=== PATIENT | male | born 1930 | race Caucasian/White ===

== ENCOUNTER 2018-09-03 10:16 | Inpatient (IN) ==
[2018-09-03 12:21] LABS: ALLEN TEST NO; BE 0.4 mmoll (-3.0-3.0); BLOOD TYPE ARTERIAL; HCO3-(ACT) 25.2 mmoll (20.0-26.0); METHB 0.9 % (0.0-1.5); MODALITY ROOM AIR; O2(CT) 14.8 mL/dL (15.0-23.0); O2HB 93.8 % (95.0-99.0); PCO2(98.6) 45 mmHg (35-45); PO2(98.6) 73 mmHg (60-100); SAMPLE BLOOD; SAO2 96.2 % (95.0-100.0); THB 11.2 g/dL (11.5-17.4); pH(98.6) 7.37 (7.35-7.45)
[2018-09-03] MEDS: NS 1,000 ML IV ONE ×2 (12:25→16:58)
[2018-09-03 12:50] LABS: BASO# 0.26 X1000 (0.0-0.2); BASO% 2.2 % (0.0-0.8); EOS# 0.12 X1000 (0.0-0.7); HEMATOCRIT 35.7 % (42.0-52.0); HEMOGLOBIN 10.7 g/dL (14.0-18.0); IMM GRAN# 0.89 X1000 (0.0-0.04); IMM GRAN% 7.5 % (0.0-0.5); LYMPH# 1.23 X1000 (1.2-3.4); LYMPH% 10.4 % (20.5-51.1); MCH 27.9 PG (27-31); MCV 93.2 FL (81-99); MONO# 1.68 X1000 (0.11-0.59); MONO% 14.2 % (1.7-9.3); MPV 9.8 FL (7.4-10.4); NEUT# 7.66 X1000 (1.4-6.5); NEUT% 64.7 % (42.2-75.2); RBC 3.83 XMIL (4.7-6.1); RDW 18.9 % (11.5-14.5); WBC 11.84 X1000 (4.8-10.8)
--- NOTE | 2018-09-03 12:51 | Diag Imaging Result Doc PS360 ---
EXAM: CHEST-1 VIEW 09/03/2018 HISTORY: AMS TECHNIQUE: AP portable upright at 1239 COMMENT: The heart size is slightly enlarged. There are ill-defined opacities in both lung bases. This was also present on 08/07/2018 as well as the previous study of 01/10/2018. There is a PICC line on the left with its tip in the superior vena cava. 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 Electronically signed by Jose Daniel Zarate 09/03/2018 12:49 PM
--- NOTE | 2018-09-03 12:57 | PROVIDER DOCUMENTATION ---
HPI-General Adult - General Chief Complaint: Altered Mental Status Stated Complaint: CONFUSION Time Seen by Provider: 09/03/18 11:48 Source: family Unable to obtain history due to:: other (pt disoriented) Allergies/Adverse Reactions: Patient Allergies Allergy/AdvReac Type Severity Reaction Status Date / Time amoxicillin [From Augmentin] Allergy Unknown Unknown Verified 08/29/18 12:09 clavulanic acid Allergy Unknown Unknown Verified 08/29/18 12:09 [From Augmentin] gatifloxacin [From Tequin] Allergy Unknown Unknown Verified 08/29/18 12:10 Home Medications: Home Medication List Medication Instructions Recorded Confirmed Last Taken Type Albuterol Sulfate [Proair Hfa] 8.5 gm IH PRN PRN 11/30/13 02/23/15 08/28/18 History Albuterol [Albuterol Neb] 2.5 mg INH 4XDAY 11/30/13 02/23/15 08/29/18 History Tiotropium [place] Inhaler 1 puff INH RTDAILY 11/30/13 02/23/15 08/28/18 History [Spiriva] Acetylcysteine 20% [Mucomyst 20%] 3 ml INH RTBID 08/29/18 08/29/18 08/28/18 History Celecoxib [Celebrex] 200 mg PO DAILY 08/29/18 08/29/18 08/28/18 History Citalopram [Celexa] 20 mg PO DAILY 08/29/18 08/29/18 08/28/18 History Diltiazem HCl [Cartia Xt] 180 mg PO DAILY 08/29/18 08/29/18 08/28/18 History Furosemide [Lasix] 40 mg PO 08/29/18 08/28/18 History Leuprolide Acetate [Eligard] 7.5 mg SQ 08/29/18 03/31/18 History Prednisone 15 mg PO DAILY 08/29/18 08/29/18 08/28/18 History - History of Present Illness -Gen Adult Nature of Presenting Problems: gives hx, since pt is very disoriented, speech is rambling. He has been increasingly confused over sev days. Today, they were en route to see PCP, and pt became combative and violent, striking at family. No fever, no SOB. HAs had a cough, no other new medicines other than Cefipime for lung infection. Location of Pain/Injury: reports: none Timing: reports: getting worse Review of Systems - Adult - REVIEW OF SYSTEMS - ADULT Constitutional: reports: see HPI Eyes: reports: no symptoms reported Ears, Nose, Mouth & Throat: reports: no symptoms reported Cardiovascular: reports: no symptoms reported Respiratory: reports: see HPI Gastrointestinal: reports: no symptoms reported Genitourinary: reports: no symptoms reported Musculoskeletal: reports: no symptoms reported Integumentary: reports: no symptoms reported Neurological: reports: see HPI Psychiatric: reports: see HPI Endocrine: reports: no symptoms reported Hematologic/Lymphatic: reports: no symptoms reported Allergic/Immunologic: reports: no symptoms reported Past History - Adult - PAST MEDICAL HISTORY-ADULT Review of Records: reports: Medications Reviewed Cardiovascular: reports: HTN Respiratory: reports: COPD Gastrointestinal: reports: denies history Physical Exam-General - PHYSICAL EXAM-ADULT Initial Vital Signs Reviewed: Yes - CONSTITUTIONAL General Appearance: appears well, alert, no apparent distress - EYES Eyes: PERRL/EOMI, pink conjunctivae - HEAD, EARS, NOSE, MOUTH & THROAT HENMT: moist mucous membranes, normal ENT inspection, pharynx normal - NECK Neck: full range of motion, supple, normal inspection - RESPIRATORY Respiratory: lungs clear, normal breath sounds, no pleuratic chest pain, no respiratory distress, no accessory muscle use - CARDIOVASCULAR Cardiovascular: regular rate, rhythm, no edema, no murmur - GASTROINTESTINAL (ABDOMEN) Abdominal Exam: non tender, soft - MUSCULOSKELETAL Back Exam: normal inspection, no CVA tenderness, no vertebral tenderness Extremity: normal range of motion, non-tender, normal inspection, no pedal edema - SKIN Integumentary: normal color, normal turgor, warm/dry - NEUROLOGIC Neurologic: grossly normal, no motor/sensory deficits, other (CN II-XII intact, DTRs intact) - PSYCHIATRIC Psych/Mental Status: other (talking about and friend being tax collectors, rambling topics). negative: normal thought content, normal thought process Progress - PLAN OF CARE/RESULTS Progress/Plan/Lab Results: Laboratory Results - last 24 hr 09/03/18 09/03/18 09/03/18 12:15 12:20 12:20 WBC 11.84 H RBC 3.83 L Hgb 10.7 L Hct 35.7 L MCV 93.2 MCH 27.9 MCHC 30.0 L RDW Std Deviation 18.9 H Plt Count 261 MPV 9.8 Immature Gran % (Auto) 7.5 H Neut % (Auto) 64.7 Lymph % (Auto) 10.4 L [place] % (Auto) 14.2 H Eos % (Auto) 1.0 Baso % (Auto) 2.2 H Immature Gran # (Auto) 0.89 H Neut # (Auto) 7.66 H Lymph # (Auto) 1.23 [place] # (Auto) 1.68 H Eos # (Auto) 0.12 Baso # (Auto) 0.26 H Specimen Type ARTERIAL Sample Site R BRACHIAL pH 7.37 pCO2 45 pO2 73 HCO3 25.2 Base Excess 0.4 Oxyhemoglobin 93.8 L ABG O2 Sat (Calculated) 14.8 L ABG O2 Saturation 96.2 ABG Carboxyhemoglobin 1.70 ABG Methemoglobin 0.9 Guilherme Test NO A-a O2 Difference 20.0 Total Hemoglobin 11.2 L Lactate 0.60 Liter Flow 0.0 Blood Gas Modality ROOM AIR FiO2 % 21.0 Plasma Lactate 0.8 Orders Category Date Time Status CHEST-1 VIEW [RAD] Stat Exams 09/03/18 12:02 Completed ABG [RESP] Routine Lab 09/03/18 12:15 Completed CBC WITH DIFF [HEME] Stat Lab 09/03/18 12:20 Results COMPREHENSIVE METABOLIC PANEL [CHEM] Stat Lab 09/03/18 12:20 Received LACTATE, PLASMA [CHEM] Stat Lab 09/03/18 12:20 Completed URINALYSIS W/POSS RFLX CULT [URINALYSIS] Stat Lab 09/03/18 12:30 Ordered URINE DRUG SCREEN Stat Lab 09/03/18 12:30 Ordered 0.9% Sodium Chloride Inj [Ns] 1,000 ml Med 09/03/18 12:02 Active IV 125 mls/hr Result Diagrams: 09/03/18 12:20 09/03/18 12:20 - XRAY 1 XRAY Study: Chest Impression: Abnormal (bibasila fibrosis R>L) - CT/MRI 1 CT Study: Head Impression: Abnormal (microvasc changes) - CONSULTS/PCP/HOSPITALIST Notification #1 *Consult/PCP/Hospitalist*: [place] Time Discussed: 14:00 Consult Disposition: Admit Departure - Departure Date of Disposition Decision: 04/17/19 Time of Disposition Decision: 14:00 DIAGNOSIS: Altered mental status, Combative behavior Disposition: ADMITTED INPATIENT 09 Certified Medical Emergency: Emergent Condition: Good Additional Freetext Instructions: ED Follow Up Instructions: You have been treated by a care provider in the Emergency Department. These instructions are being provided to you so you can have an understanding of how to care for yourself upon discharge. Upon discharge from the Emergency Department, you are responsible for making arrangements for follow-up care by a physician of your choice. Take all prescribed medications as directed. Return to the Emergency Department immediately for any new or worsening symptoms. You may call the Physician Referral phone number at [phone] to obtain a list of Physicians who are taking new patients. Referrals and Follow-Ups: Shay Tran MD [Primary Care Provider] - - Critical Care Note This patient required my direct & personal management of CC.: No Attestation - Physician/ MARCY Attestation Patient care was provided by Advanced Practice Provider:: No The physician spent face to face time with patient:: Yes Advanced Practice Provider documentation review:: Supervising physician onsite and consulted in the evaluation and care of this patient. The physician did have a face to face encounter with the patient.
--- NOTE | 2018-09-03 12:58 | EKG Report ---
Test Performed on : 09/03/2018 10:31:43 AM Test Reason : CONFUSION Blood Pressure : / mmHG Vent. Rate : 097 BPM Atrial Rate : 097 BPM P-R Int : 124 ms QRS Dur : 108 ms QT Int : 376 ms P-R-T Axes : 059 016 023 degrees QTc Int : 477 ms Normal sinus rhythm. Incomplete right bundle branch block T wave abnormality, consider anterior ischemia Abnormal ECG When compared with ECG of 17-FEB-2015 14:24, Incomplete right bundle branch block has replaced Right bundle branch block Unconfirmed Result
[2018-09-03 13:00] LABS: ALB/GLOB RATIO 0.9; ALBUMIN 3.3 g/dL (3.5-5.0); CREATININE 1.6 mg/dL (0.7-1.2); POTASSIUM 4.1 mmol/L (3.5-5.1); TOTAL BILIRUBIN 0.23 mg/dL (0.20-1.00); TOTAL PROTEIN 6.8 g/dL (6.3-8.3)
[2018-09-03 13:26] LABS: LYMPHS 10 % (21-51); MONO 15 % (1-9); SEGS 68 % (42-75)
[2018-09-03 13:29] LABS: PLT 261 X1000 (130-400)
--- NOTE | 2018-09-03 14:03 | Diag Imaging Result Doc PS360 ---
EXAM: CT HEAD W/O CONTRAST 09/03/2018 HISTORY: AMS TECHNIQUE: This exam was performed using automated exposure control, adjustment of mA or kV according to patient size, and/or use of iterative reconstruction technique. COMMENT: There is mucosal thickening and air-fluid levels bilaterally in the maxillary sinuses and some mucosal thickening is present in the ethmoid sinuses, sphenoid sinuses bilaterally. The calvarium is intact. There is moderate generalized cerebral atrophy. There are extensive abnormal lucencies in the periventricular white matter bilaterally. There is no evidence of mass effect, bleed or abnormal extra-axial fluid collection. There are no previous studies available for comparison. IMPRESSION: Chronic microvascular ischemic changes and atrophy. Sinusitis. Electronically signed by Jose Daniel Zarate 09/03/2018 2:00 PM
[2018-09-03 14:09] LABS: URINE SOURCE CLEAN CATCH
[2018-09-03 14:15] LABS: BILIRUBIN URINE NEGATIVE (NEGATIVE); BLOOD URINE SMALL (NEGATIVE); COLOR YELLOW; GLUCOSE URINE NEGATIVE (NEGATIVE); KETONE URINE TRACE mg/dL (NEGATIVE); LEUKOCYTES URINE NEGATIVE (NEGATIVE); NITRITE URINE NEGATIVE (NEGATIVE); PH URINE 5.5; PROTEIN URINE 50 mg/dL (NEGATIVE); SP GRAVITY URINE 1.017; TURBIDITY URINE CLEAR (CLEAR); UR EPITHELIAL CELLS <10 /HPF (<10); URINE BACTERIA NEGATIVE /HPF; URINE RBC <10 /HPF (<10); URINE WBC <10 /HPF (<10); UROBILINOGEN URINE NORMAL (NORMAL)
[2018-09-03] MEDS ORDERED: ZOFRAN IV PRN (14:38)
[2018-09-03 14:47] LABS: UR AMPHETAMINES QUAL NONE DETECTED (NONE DETECT); UR BARBITUATES QUAL NONE DETECTED (NONE DETECT); UR BENZODIAZEPIN QUAL NONE DETECTED (NONE DETECT); UR CANNABINOIDS QUAL NONE DETECTED (NONE DETECT); UR COCAINE QUAL NONE DETECTED (NONE DETECT); UR METHADONE QUAL NONE DETECTED (NONE DETECT); UR OPIATES QUAL NONE DETECTED (NONE DETECT); UR OXYCODONE QUAL NONE DETECTED (NONE DETECT); UR PCP QUAL NONE DETECTED (NONE DETECT)
[2018-09-03] MEDS: DUONEB (A & A) INH SCH ×2 (15:11→20:40)
--- NOTE | 2018-09-03 16:20 | ED EKG INTERP ---
This chart was entered by Lu Yung Scribe, acting as scribe for Lizandro Samaniego MD. EKG Interpretation - EKG Time of EKG reading by physician:: 10:31 EKG Read and Signed by:: Lizandro Samaniego EKG Interpretation (*Must complete 3 of following elements*): Abnormal Rate: 97 Rhythm: normal sinus rhythm QRS: RBB (incomplete) MO Interval: normal Comments: T wave abnormality, consider anterior ischemia Attestation - Physician/ MARCY Attestation The physician spent face to face time with patient:: Yes Advanced Practice Provider documentation review:: Supervising physician onsite and consulted in the evaluation and care of this patient. The physician did have a face to face encounter with the patient. This chart was documented by the indicated scribe, (Lu Yung Scribe) and accurately reflects the services I performed and decisions made by me, Lizandro Samaniego MD, as attested by the provider's signature.
[2018-09-03] MEDS: HALDOL IV PRN ×3 (16:59→22:17)
[2018-09-03] MEDS: CARDIZEM CD PO SCH (18:11)
[2018-09-03] MEDS ORDERED: LOPRESSOR PO ONE (18:18)
--- NOTE | 2018-09-03 21:18 | HISTORY AND PHYSICAL ---
CHIEF COMPLAINT: Mental status change. HISTORY OF PRESENT ILLNESS: This 87-year-old, white male, presented to the emergency room on the day of admission. The had called the office at 330pm saying that he had been having extreme confusion and worsening breathing for the last 3 days. He was given an appointment for early the next morning, but the family decided to take him to the emergency room because of his condition, before his appointment at 1015. He was evaluated in the emergency room with normal labs and normal CT scan of the brain,But he was very combative, cursing and acting out against his . We decided to admit the patient for further evaluation. The patient's family is trying to tie this behavior with the beginning of some IV medication and some IV antibiotics that he was prescribed for chronic pulmonary infection. He had a PICC line installed last week I believe, and has been getting cefepime under the direction of Dr. Price. He has had no other new medications added to his regimen or any changes made in it. PAST MEDICAL HISTORY: 1. 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 2. History of glaucoma. 3. History of gross hematuria. 4. History of prostate cancer. 5. Status post robotic partial nephrectomy. 6. Abdominal aortic aneurysm. 7. Gastroesophageal reflux disease. 8. Erectile dysfunction. 9. History of renal cysts. 10. Spinal stenosis. 11. Chronic right bundle branch block. 12. Atrial fibrillation. 13. Elevated sedimentation rate. PAST SURGICAL HISTORY: 1. Appendectomy 1962. 2. Cataracts 2000. 3. Cataract 2002. 4. Right partial nephrectomy. SOCIAL HISTORY: The patient is a nonuser of alcohol. He is a former smoker. He did have service in 1952. FAMILY HISTORY: Type 2 diabetes, osteoporosis, arthritis. REVIEW OF SYSTEMS: Up until 3 days ago, the patient was doing well, or at least reasonably well and is operating at his baseline function. The patient's states that he had not slept at night or during the day for about 3 days prior to admission, maybe even before. He was wild, combative and confrontational, and speaking really out of character with paranoid delusions and such. Remarkably, no one related any incident of him having worsening breathing or difficulty. He did state that during these episodes he was having spells where his arms would shake or go into spasms. It was not zayra seizure-like activity and at no point did he lose consciousness during that. He has had no trauma to his head. He has run no fever. He has had no nausea and vomiting, p.o. intake has been spotty over the last several days. He has been able to be convinced to take his medication now. PHYSICAL EXAMINATION: GENERAL: He is a well-developed, white male in no acute distress. He is lying in the bed, having received some IV Haldol and seems to have calmed down quite a bit by the time I arrived in the afternoon. HEENT: On exam, the sclerae are anicteric. Oral mucosa seems reasonably hydrated. The patient has an old repair of a Hare lip which occurred in childhood. NECK: No carotid bruits or JVD is noted. LUNGS: The patient's lungs are remarkably clear. He almost always has a little bit of a rattly, respiratory cycle, but I did not hear any zayra wheezing and his lung function appears to be at or above baseline. CARDIOVASCULAR: Regular, 93. ABDOMEN: Bowel sounds are present. EXTREMITIES: 1+ edema. Patient's left upper extremity is wrapped as he had a skin tear on his left arm. There is a PICC line in his left biceps area. NEUROPSYCHIATRIC: The patient is not oriented, although he is alert. He does not know time, place, person or situation. He answers questions, but not in appropriate manner. NEUROLOGIC: I do not detect any neurological deficits. I have seen the patient move all of his extremities on the bed without any difficulty. As he was dozing off, I did note a tremor or shaking in his right arm which came and went. LABORATORY: White cell count 11.8, hemoglobin 10.7, platelet count 261. Sedimentation rate is 69. ABG shows pH 7.37, pCO2 of 45, pO2 of 73. This is listed as being taken on room air. Electrolytes were grossly normal. BUN is 41, creatinine 1.6. Urinalysis was normal. Urine drug screen was negative. ASSESSMENT AND PLAN: 1. The patient's respiratory status, he seems stable to me and want to consult Dr. Price. At the present time, I am going to hold his cefepime unless Dr. Price wants to continue it. We will continue aerosol treatments and oxygen. 2. The patient's mental status change will be handled with major tranquilizers such as Haldol, so they do not impinge his respiratory drive. We will monitor for any extrapyramidal side effects. We are going to hold the citalopram for the present time. 3. The patient has abdominal aortic aneurysm of 4.6 cm. We are aware of this. No action has been taken. Dr. Leblanc has followed this in the past. 4. The patient's prostate cancer history is being treated by Dr. Diane. 5. I have made the patient do not resuscitate level 1 explaining to the patient's family that because of his chronic medical conditions, should he succumb suddenly or have a bad outcome, there would be very little hope of having him return to a lifestyle even remotely similar to what he enjoys at present, which is really not all that high quality. 6. The patient has an elevated sedimentation rate. He had initially presented with extreme muscle and joint pain. Workup in the office was somewhat unrevealing. In July, sedimentation rate was down to 46 on relatively moderate dose steroids. His LDH was elevated at 265. Total CK was normal. Serum aldolase was elevated at 10.5. DOMINIQUE was negative. Rheumatoid factor was very high at 106. The patient was treated with steroids and an appointment was made for Rheumatology consultation. I am not sure if that has taken place yet. cc: Shay Tran MD MTDD
[2018-09-04] MEDS: HALDOL IV PRN ×5 (01:19→21:59)
[2018-09-04] MEDS: DUONEB (A & A) INH SCH ×4 (03:15→21:05)
[2018-09-04] MEDS ORDERED: MUCOMYST 20% INH SCH (07:30)
--- NOTE | 2018-09-04 08:05 | EKG Report ---
Test Performed on : 09/03/2018 5:47:29 PM Test Reason : telemetry changes Blood Pressure : / mmHG Vent. Rate : 150 BPM Atrial Rate : 150 BPM P-R Int : 152 ms QRS Dur : 106 ms QT Int : 332 ms P-R-T Axes : 000 -15 -33 degrees QTc Int : 524 ms Undetermined rhythm Incomplete right bundle branch block Possible Lateral infarct , age undetermined Inferior infarct , age undetermined Marked ST abnormality, possible anterior subendocardial injury Abnormal ECG When compared with ECG of 03-SEP-2018 10:31, (Unconfirmed) Current undetermined rhythm precludes rhythm comparison, needs review Inferior infarct is now present ST now depressed in Anterolateral leads Confirmed by Nona LEMUS, Jermaine ([id number]) on 09/04/2018 8:38:19 AM
--- NOTE | 2018-09-04 08:30 | PROGRESS NOTE ---
DATE: 09/04/2018 SUBJECTIVE: The patient was asleep in the bed. Apparently, he had an intermittently restless night, requiring some sedation. The patient was asleep in the bed when I first arrived but woke up spontaneously. The patient's and I reviewed his history leading up to the hospitalization. OBJECTIVE: Vital Signs: 98.1, 76, 111/51, 96% saturated on 4 L nasal cannula. Physical Examination: Lungs: The patient has a rattly, wet-sounding cough. He has good air movement. He is not actively wheezing. Neuropsychiatric: The patient recognizes his but is not oriented to time, place, or situation otherwise. Laboratories: No new labs today. ASSESSMENT AND PLAN: 1. The patient's acute decline in mental status as well as his myoclonic jerking may be evidence of neurotoxicity due to cefepime. He is the correct age and has mild renal dysfunction as well as the other polypharmacy which may have affected his mental status. At the present time, I am holding cefepime and would like to get the opinions of Dr. Dunn and Dr. Price in regard to further treatment with this medication. 2. The patient's chronic obstructive pulmonary disease is reasonably well controlled. He also has bronchiectasis and he is continued basically on his home regimen of aerosol treatments and other medications. 3. The patient still has an elevated sedimentation rate. He has not complained of any joint pain over the last several weeks. He did see rheumatology and has a followup appointment on September 17. They gypsy a lot of lab work, none which we are privy to or have back yet. At the present time, I am going to continue him on his prednisone 10 mg. 4. Abdominal aortic aneurysm. Aware. 5. Prostate cancer history. Aware. 6. I reconfirmed with the patient's that Do Not Resuscitate level 1 is the appropriate resuscitation level. She was in agreement. cc: Shay Tran MD
[2018-09-04] MEDS: CARDIZEM CD PO SCH (08:50)
[2018-09-04] MEDS: PREDNISONE PO SCH (08:50)
[2018-09-04] MEDS: CELEBREX PO SCH (08:50)
[2018-09-04] MEDS: LASIX PO SCH (08:50)
[2018-09-04] MEDS ORDERED: CARDIZEM PO SCH (09:00)
[2018-09-04] MEDS ORDERED: CARDIZEM CD PO SCH (09:00)
[2018-09-04] MEDS: TAZIDIME 2 GM/NS 2 GM/100 ML IVPB IV SCH ×2 (11:02→17:10)
--- NOTE | 2018-09-04 16:17 | CONSULTATION ---
DATE OF CONSULTATION: 09/04/2018 REASON FOR CONSULTATION: Altered mental status with question of antibiotic neurotoxicity. HISTORY OF PRESENT ILLNESS: This is an 87-year-old, male, who was admitted yesterday with altered mental status. History is from the attentive at bedside. She reports that nearly 1 week ago the patient began cefepime to treat a pulmonary infection. Three days later, he began to have gradually worsening mental status changes. This began on Saturday and progressed over the course of a few days prompting admission. He became more and more agitated, more confused, combative. The could not even get him into the car and had to call EMS to bring him here. There was no report of loss of consciousness, focal weakness, or other focal neurologic symptoms. She does report that his extremity jerking has increased this week from baseline. She reports that at baseline he does have some jerking of his extremities from time to time, often when he is resting, but says that the frequency had increased this week. There was no report of zayra seizure activity. There have been no other medication changes, other than the addition of cefepime. reports at least 2 years of progressive cognitive decline. He does not recognize familiar people, and gets lost even in the house. He is no longer driving, no longer managing finances for the past couple of years. The patient is often confused in that way she says, but his behavior has changed significantly in recent days. They have never pursued a workup for dementia. They have not been on any medications either. A head CT on arrival did not show acute findings; it did show at least moderate generalized cerebral atrophy and extensive chronic microvascular ischemic changes. The patient was admitted and the cefepime was held. His citalopram was also held. The patient has been on some prednisone daily for some time now I believe while he is being worked up for rheumatologic illness. In the hospital, he has been managed with Haldol as needed and received 1 dose this morning. PAST MEDICAL HISTORY: Atrial fibrillation. Abdominal aortic aneurysm. Partial nephrectomy. History of prostate cancer. Glaucoma. COPD. Pulmonary infection that is being treated. GERD. Spinal stenosis. Bilateral cataracts. SOCIAL HISTORY: He does not drink alcohol. He has not smoked in many years. No illicits. He is and lives with his . FAMILY HISTORY: No strokes or seizures. Positive for heart disease. ALLERGIES: Listed and reviewed in the chart. MEDICATIONS: Reviewed in the chart as per above. REVIEW OF SYSTEMS: Balance of 12 was conducted and is otherwise negative, except as detailed in the HPI. PHYSICAL EXAMINATION: Vital Signs: Afebrile, blood pressure 150/57, pulse 91, respirations 20, satting 95% on 4 L nasal cannula. Neurological: Mr. Mendoza is supine in bed with head of bed elevated. He is wearing nasal cannula and is asleep, resting comfortably while I talk with his . He is hard of hearing, but with louder voice is easily awaked. He looks to his to be sure that he should talk to me. He subsequently states his name, agreed he was in the hospital, stated the incorrect year, did not know date; said July, but was able to correctly say August with assistance. Did not know the president. He followed simple commands. Left/right and digit distinction preserved. No language disturbance on brief bedside testing. No dysarthria. Pupils equal, round, reactive. Gaze conjugate. Extraocular movements appeared full. He blinks to threat. Face symmetric with equal activation. Facial sensation intact. Tongue is midline. Palate appears to elevate symmetrically. Full shoulder shrug. He is hard of hearing. No drift. Strength is preserved in the arms and legs and symmetric. He responds to sensation equally to light touch and pinprick in the arms and legs. Reflexes are diminished in the lower extremities. No clonus. Plantar response is silent. He has occasional random myoclonic jerks of the extremities during my time at the bedside. Tone was equal in the limbs. No meningismus. Finger- to-nose was symmetric, a bit slowed. He would not perform rapid alternating movements for me. I did not test his gait. The reports he walks with a walker. reports he has been paranoid this week thinking that she is trying to poison him. DIAGNOSTICS: White count 11.8. Sodium normal. BUN 41. Creatinine 1.6. Blood sugar, calcium, AST and ALT normal. CRP of 24.9. Plasma lactate normal. Urinalysis: 50 of protein, trace ketones, small blood. Toxicology is negative. Head CT, noncontrast, personally reviewed. No acute findings. There is at least moderate generalized cerebral atrophy and chronic microvascular ischemic changes. ASSESSMENT AND PLAN: 1. Global encephalopathy. This may be multifactorial. 2. Apparently worsened myoclonic jerks from baseline. 3. 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 The patient likely has a major neurocognitive impairment syndrome or dementia which would predispose him to any toxic, metabolic, infectious or other derangement. His course could even be more prolonged because of this. The encephalopathy and even myoclonus may be related to acute kidney injury, though I do not have any recent lab work to compare current labs to. Cefepime neurotoxicity is a possibility and can cause encephalopathy and myoclonus and typically seizures. I would like to evaluate with a routine electroencephalogram. Agree with withholding the cefepime for now. Otherwise I would continue supportive care in managing his pulmonary infection. Continue frequent reorienting and as-needed medications when indicated. If the patient does not begin to show signs of improvement, then I would consider magnetic resonance imaging of the brain with contrast when feasible. Thank you for the consultation. cc: MD Shay Mujica MD
--- NOTE | 2018-09-04 16:31 | EEG REPORT ---
DATE: 09/04/2018 REFERRING: Kristan Veronica MD NURSE FIRST AID: Cindy Villegas. BACKGROUND INFORMATION AND TECHNIQUE: This is a portable digitally recorded routine EEG with video. HISTORY: An 87-year-old male with altered mental status. EEG is ordered to detect evidence of seizures and to evaluate degree of encephalopathy. MEDICATIONS: Include p.r.n. Haldol. EEG FINDINGS: A posterior dominant alpha rhythm is not seen. The background consists of theta delta slowing with some intermixed faster frequencies. There are intermittent brief 2- to 3-second periods of diffuse semirhythmic delta during the study. Rare broad-based triphasic-like waves are also seen during this study. No definite persistent focal slowing. No epileptiform discharges. No seizures. Hyperventilation is not performed. Photic stimulation does not alter the record. No definite drowsiness patterns. Stage II sleep is not seen. The EKG demonstrates regular intervals with some PVCs. There is some mention of jerking of the legs during the study with no epileptiform EEG correlate. IMPRESSION AND CLINICAL CORRELATION: Abnormal routine EEG due to moderate generalized slowing with rare triphasic waves as detailed above. No epileptiform discharges or seizures seen on this study. This does not rule out an underlying seizure disorder. Generalized slowing is a nonspecific finding that can be seen in processes that diffusely affect the cerebrum, including toxic, metabolic, pharmacologic, posthypoxic, and infectious etiologies amongst others. Triphasic waves are also a nonspecific finding often seen with encephalopathies, typically in those with hepatic or renal derangements. cc: MD Shay Mujica MD [facility]
[2018-09-04] MEDS ORDERED: ATIVAN IV ONE (23:31)
[2018-09-05] MEDS: TAZIDIME 2 GM/NS 2 GM/100 ML IVPB IV SCH ×3 (01:26→18:16)
[2018-09-05] MEDS: DUONEB (A & A) INH SCH ×5 (03:25→21:10)
[2018-09-05] MEDS ORDERED: MUCOMYST 20% INH SCH (07:30)
[2018-09-05 08:39] LABS: BASO# 0.13 X1000 (0.0-0.2); BASO% 1.7 % (0.0-0.8); EOS# 0.16 X1000 (0.0-0.7); HEMOGLOBIN 10.2 g/dL (14.0-18.0); IMM GRAN# 0.69 X1000 (0.0-0.04); IMM GRAN% 8.8 % (0.0-0.5); LYMPH# 0.91 X1000 (1.2-3.4); LYMPH% 11.7 % (20.5-51.1); MCH 28.2 PG (27-31); MCV 93.9 FL (81-99); MONO# 1.32 X1000 (0.11-0.59); MONO% 16.9 % (1.7-9.3); MPV 9.6 FL (7.4-10.4); NEUT% 58.9 % (42.2-75.2); PLT 302 X1000 (130-400); RBC 3.62 XMIL (4.7-6.1); RDW 18.9 % (11.5-14.5); WBC 7.81 X1000 (4.8-10.8)
[2018-09-05 08:41] LABS: ALB/GLOB RATIO 0.9; CALCIUM 8.8 mg/dL (8.8-10.2); CREATININE 1.5 mg/dL (0.7-1.2); MAGNESIUM 2.2 mg/dL (1.5-2.7); POTASSIUM 3.9 mmol/L (3.5-5.1); TOTAL BILIRUBIN 0.18 mg/dL (0.20-1.00); TOTAL PROTEIN 6.4 g/dL (6.3-8.3)
[2018-09-05 09:01] LABS: FREE T4 1.05 ng/dL (0.93-1.70); TSH 2.74 uIUmL (0.27-4.20)
[2018-09-05 09:37] LABS: BANDS 2 % (0-1); EOS 2 % (1-10); LYMPHS 14 % (21-51); MONO 2 % (1-9); NRBC 1 % (0-0); SEGS 78 % (42-75)
--- NOTE | 2018-09-05 09:43 | PROGRESS NOTE ---
DATE: 09/05/2018 SUBJECTIVE: Mr. Mendoza had some restlessness in the night according to attentive at the bedside. He was temporarily improved with haloperidol 5 mg doses given three times before midnight last night. This morning, he continues sleeping. History from the at the bedside is that he has had significant forgetfulness for a few years, gradually getting worse, much worse in recent months. He sometimes does not recognize his home. He cannot use the TV remote. has read potential adverse effects of cefepime, and she reports he had most of these problems prior to starting cefepime. He presented with BUN 41, which is above his baseline, and that has been partially corrected. He has a few other findings on metabolic profile, but nothing that generally would contribute significantly to encephalopathy. Drug screen was all negative. His home medication list is extensive, but does not include anything that likely would contribute significantly to encephalopathy. I do not have anything to add to current management. He clearly has a prominent baseline cognitive impairment syndrome which predisposes him to protracted encephalopathy with any toxic or metabolic disturbance. Cefepime may or may not be contributing. I think it would be reasonable to consider cholinesterase inhibitor trial when practical, not urgent. Thanks for asking Neurology to see Mr. Mendoza. cc: MD Shay Robles III, MD MTDD
--- NOTE | 2018-09-05 09:58 | PROGRESS NOTE ---
DATE: 09/05/2018 SUBJECTIVE: The patient had a rough night. He received Haldol 3 times up until about 10 p.m. They then called me at 1 a.m. and said he was still wild and pulling at all of his devices, not sleeping, not cooperating. We gave him 1 mg dose of Ativan and he proceeded to become apneic several times almost immediately. We then put him on some BiPAP and he seemed to do well through the rest of the night. When I arrived this morning, he was still sleeping and on the BiPAP, tolerating it very well, in no distress. I spoke at length with his . OBJECTIVE: Vital signs: 97.7, 69, 18, 146/96, 100% saturated on BiPAP at 10/5 with I think 40% FiO2. General: The patient is asleep and relaxed. He is tolerating the BiPAP very well. He has coarse air movement in the right upper lobe with some mild wheezing but generally good air movement. The left side sounds more clear, but still has some coarse breathing sounds. Cardiovascular: Regular and not tachycardic. Extremities: Show no peripheral edema. Neuropsychiatric: Inaccessible. LABORATORY DATA: White cell count 7.8, hematocrit 34. BUN 35, creatinine 1.5. B12 and thyroid studies are normal. ASSESSMENT AND PLAN: 1. The patient's mental status decline is being addressed by subspecialty medicine as well as myself. It is noted that his antibiotics was changed to one that will not cross the blood- brain barrier. The patient has some chronic cognitive deficits which have predisposed him to acute delirium. We will continue to work through appropriate medications for this and try and find something that can keep him calm. 2. If the patient's mental status does not improve, then I think his options for treatment are going to be limited. I do not think his can take care of him at home and he will likely need [place] [facility]. 3. The patient's chronic obstructive pulmonary disease and bronchiectasis are reasonably well controlled. He does have sleep apnea, was not on any CPAP or BiPAP at home but only on oxygen and had done fairly well. 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 4. The patient's elevated sedimentation rate is still in the process of workup. There is lab pending from the manager rfid, which I do not have access to. We will continue prednisone 10. 5. I was informed this morning that the patient had bladder fluid retention. They had a volume of over 600 and he had not voided for the last shift. I instructed them to put in a Alberto catheter. 6. Apparently right after I had dictated the patient's admission note and had tucked him in for the night, very early yesterday morning, he went into supraventricular tachycardia temporarily. This resolved itself quite suddenly without any treatment. 7. Abdominal aortic aneurysm. Aware. 8. Prostate cancer. Aware. 9. Do Not Resuscitate level 1. cc: Shay Tran MD
[2018-09-05 12:16] LABS: URINE SOURCE CATH
[2018-09-05 12:26] LABS: BILIRUBIN URINE NEGATIVE (NEGATIVE); BLOOD URINE NEGATIVE (NEGATIVE); COLOR YELLOW; GLUCOSE URINE NEGATIVE (NEGATIVE); KETONE URINE TRACE mg/dL (NEGATIVE); LEUKOCYTES URINE NEGATIVE (NEGATIVE); NITRITE URINE NEGATIVE (NEGATIVE); PROTEIN URINE 30 mg/dL (NEGATIVE); SP GRAVITY URINE 1.009; TURBIDITY URINE CLEAR (CLEAR); UR EPITHELIAL CELLS <10 /HPF (<10); URINE BACTERIA NEGATIVE /HPF; URINE RBC <10 /HPF (<10); URINE WBC <10 /HPF (<10); UROBILINOGEN URINE NORMAL (NORMAL)
[2018-09-05] MEDS: PREDNISONE PO SCH (13:31)
[2018-09-05] MEDS: CARDIZEM CD PO SCH (13:31)
[2018-09-05] MEDS: CELEBREX PO SCH (13:31)
--- NOTE | 2018-09-05 16:16 | PULMONOLOGY CONSULTATION ---
DATE: 09/04/2018 REQUESTING PHYSICIAN: Shay Tran MD. CLINICAL INDICATIONS: Chronic obstructive pulmonary disease with possible antibiotic neurotoxicity. HISTORY OF PRESENT ILLNESS: Mr. Mendoza is an 87-year-old white male with component of dementia, long history of bronchiectasis, who has been followed in my clinic for several years. The patient was seen 08/14/2018 and was on steroids at that time for progressive arthritis in his left knee. He is currently being evaluated by Rheumatology. The patient had had increased sputum production, along with increased dyspnea and was on Omnicef. A CT scan of the thorax was ordered along with sputum cultures and immunoglobulin levels to ensure that the etiology for his new rheumatoid disease was not related to a primary malignancy within the chest, given his long history of tobacco. The patient returned to the office on 08/28/2018. He had had progressive decline. His oxygen saturation was 80% upon walking into the room. He continued to have increasing sputum production, along with increasing fatigue and weight loss. CT scan of the thorax revealed bronchiectasis with consolidation at the left base. Because of his ongoing clinical decline and quinolone indeterminate Pseudomonas, a PICC line was placed, and he was initiated on cefepime. Previous chemistries revealed normal renal function, but he did get a decreased dose from 2 g 3 times a day to 2 g twice a day. The patient's reports he initially had some improvement but then became more combative. The patient was scheduled to see Dr. Tran, but due to inability to have him get in a car and come to the doctor and ER, an ambulance was required. Urine toxicology screen was negative. CT scan of the head was performed which revealed sinusitis along with generalized cerebral atrophy. An EEG was performed, which revealed moderate generalized slowing but no evidence of seizures. The patient currently is awake and alert. He recognizes this practitioner. He is not oriented to place, date, or time. PAST MEDICAL HISTORY: Problem list: 1. Long history of bronchiectasis and chronic hypoxemic respiratory failure as per above. 2. History of prostate cancer. 3. Status post partial nephrectomy. 4. Abdominal aortic aneurysm. 5. Gastroesophageal reflux disease. 6. Atrial fibrillation. 7. Spinal stenosis. 8. History of glaucoma. 9. Status post appendectomy. 10. Status post bilateral cataract removal. SOCIAL HISTORY: This patient has a [id number] history for tobacco but has not smoked for several years. He is retired. He has no prior tuberculosis exposure. He has an attentive . No alcohol use listed. FAMILY HISTORY: Notable for heart attack and kidney disease. PHYSICAL EXAMINATION: General: Reveals a A chronically ill appearing male who is confused. He has audible rhonchi. He has mild work of breathing. HEENT pupils equal and reactive. Oropharynx is clear. Chest reveals diffuse bilateral rhonchi. Cardiac exam S1-S2, irregular rhythm Abdomen is obese and soft. Extremities are without acute changes. sodium 143, potassium 4.1, chloride 106, bicarbonate 41, bicarbonate 27, BUN 41, creatinine 1.6. C-reactive protein elevated at 24.9. White blood count elevated at 11.8, hemoglobin 10.4, platelet count 261,000. IMPRESSION: An 87-year-old with acute hypoxemia in the office, exacerbation of bronchiectasis, steroid use, progressive dementia with behavioral disturbance. He has not been aggressive in the past. This could be cefepime related as encephalopathy has been reported. I suspect that it is multifactorial and related to his age, known dementia, acute illness, steroid use for new onset arthritis, hypoxemia, with ongoing clinical decline; however, given the unknown etiology, along with other alternatives, cefepime will be discontinued, and he will be initiated on ceftazidime. RECOMMENDATIONS: 1. Discontinue Mucomyst. This was initiated as an outpatient for bronchial clearance; however, this causes nausea, and he had an episode of minor hemoptysis this morning. It will be discontinued. 2. Transition cefepime to ceftazidime. 3. Continue oxygen for hypoxemic respiratory failure. 4. Continue bronchial hygiene for exacerbation of bronchiectasis. 5. Long-term prognosis is poor given his progressive dementia, episode of delirium, worsening bronchiectasis which can not easily be treated with quinolones. His is aware that he may have progression of his illness, and end of life discussions have been held by Dr. Tran. cc: MD Shay Vergara MD [facility]
[2018-09-05] MEDS ORDERED: ZYPREXA ZYDIS PO SCH (21:00)
--- NOTE | 2018-09-05 21:01 | PULMONOLOGY PROGRESS NOTE ---
DATE: 08/29/2018 SUBJECTIVE: The patient is awake, alert. He is conversant. He is not oriented to current time or place. He continues to have more difficulty in the evenings and fur remodeler with mental status and disruptive behavior. OBJECTIVE: Vital Signs: The patient has been afebrile for the last 24 hours. BP 127/96, heart rate 97, respiratory rate 17, oxygen saturation 100%. HEENT: Pupils are equal and reactive. Oropharynx is clear. Neck: Is supple. Chest: Reveals diminished breath sounds left base with scattered rhonchi bilaterally. Cardiac: S1-S2. Abdomen: Is soft and obese. Extremities: Are without edema. LABORATORIES: White blood count has normalized to 7.81, hemoglobin 10.2, platelet count 302,000. Sodium 139, potassium 3.9, chloride 105, bicarbonate 23, BUN 35, creatinine 1.5. Normal vitamin B12, TSH and free T4 levels. No new microbiology data. IMPRESSION: 1. An 87-year-old with acute hypoxemia, which was progressive as an outpatient. 2. Exacerbation of bronchiectasis. 3. Progressive dementia with episodes of behavioral disturbances. 4. New onset inflammatory arthritis. 5. Acute renal insufficiency. RECOMMENDATIONS: 1. Continue antibiotics. Patient's cefepime has been converted to ceftazidime. 2. Continue bronchodilators as tolerated. 3. Consider holding Celebrex until renal function recovers. 4. Continue Geodon, Ativan and at bedtime Zyprexa. 5. Overall prognosis appears to be guarded to poor. cc: MD Shay Vergara MD
[2018-09-05] MEDS: STERILE WATER INJ. INJ PRN (23:24)
[2018-09-05] MEDS: GEODON IM PRN (23:25)
[2018-09-06] MEDS: TAZIDIME 2 GM/NS 2 GM/100 ML IVPB IV SCH ×3 (01:17→17:26)
[2018-09-06] MEDS: DUONEB (A & A) INH SCH ×4 (03:15→21:39)
[2018-09-06] MEDS: PREDNISONE PO SCH (08:56)
[2018-09-06] MEDS: CARDIZEM CD PO SCH (08:56)
[2018-09-06] MEDS: CELEBREX PO SCH (08:56)
[2018-09-06] MEDS: LASIX PO SCH (08:56)
--- NOTE | 2018-09-06 10:45 | PROGRESS NOTE ---
DATE: 09/06/2018 SUBJECTIVE: The patient had another rough night last night. His nephew stayed with him. He got his sleeping tablet around 9. By 10:30, they were calling for more sedation. He got a Geodon injection which really seemed to have no effect except to keep him agitated. He finally dozed off sometime between 4 and 5:30 a.m. and slept for few hours. He continually pulls off his oxygen. He will not tolerate CPAP when he is agitated and when we gave him Ativan in the past, he became apneic and required BiPAP. OBJECTIVE: Vital Signs: 96.7, 91, 18, 156/60, 97% saturated on 4 L nasal cannula. General: The patient is alert. He is oriented to self but not to situation or anyone else in the room except possibly his . He is unable to answer questions in a meaningful fashion, is constantly pulling at and removing his oxygen. He is pulling at his Alberto catheter. He has removed his telemetry. HEENT: Cushingoid facies. Lungs: Bilateral rattly expiration with some wheeze. He has fair air movement but this is not as good as his baseline. Cardiovascular: Regular. Extremities: Trace peripheral edema. LABORATORY DATA: None were drawn today. ASSESSMENT AND PLAN: 1. The patient's mental status decline continues to be an issue. He has baseline dementia and then whatever other entities have effected his acute decline are being monitored. It is noted that he was changed to Fortaz for his antibiotic, which does not cross the blood/brain barrier as cefepime does. 2. Chronic obstructive pulmonary disease and bronchiectasis are stable. He is not tolerating his BiPAP at night, but we have not sedated him with benzodiazepines. We will continue with oxygen and pulmonary treatments as previously. 3. The patient's elevated sedimentation rate and arthropathy is still in the process of workup. I do not have access to those labs. He will continue on steroids for the present time. 4. The patient did have some urinary retention yesterday. His Alberto catheter seems to be functioning fine now, but I am afraid he will pull it out at some point. Given that his blood pressure is reasonably stable, I am going to give him a trial of Flomax and then hopefully we can remove the catheter shortly. 5. I have no further reports of supraventricular tachycardia. 6. Abdominal aortic aneurysm. Aware. 7. Prostate cancer. Aware. The patient had a follow-up appoint with Dr. Diane next week for repeat PSA and a depo Lupron shot. I advised the patient's family and cancel this until he is more stable. 8. Do Not Resuscitate level 1. cc: Shay Tran MD
[2018-09-06] MEDS: STERILE WATER INJ. INJ PRN ×2 (14:03→20:04)
[2018-09-06] MEDS: GEODON IM PRN ×2 (14:05→20:05)
[2018-09-06] MEDS: ZYPREXA ZYDIS PO SCH (18:42)
--- NOTE | 2018-09-06 20:37 | PULMONOLOGY PROGRESS NOTE ---
DATE: 09/05/2018 SUBJECTIVE: The patient has been moved to another room. He continues to sleep poorly and alternating his sleep cycle. His is attempting to keep him awake today in hopes that he will sleep better tonight. He is attempting to converse, but his speech is only partially coherent. OBJECTIVE: Vital Signs: The patient has been afebrile for the last 24 hours. Blood pressure 119/58, heart rate 96, respiratory rate 18, oxygen saturation 100% on 4 L per nasal cannula. HEENT: Pupils are equal and reactive. Oropharynx is clear. Neck: Supple. Chest: Reveals rhonchi bilaterally without wheezing. There are slightly decreased breath sounds at the left base. Cardiac: S1-S2. Abdomen: Soft. Extremities: Without edema. LABORATORIES: No new microbiology data. No new chemistries. No new CBC. IMPRESSION: 88-year-old with: 1. Acute hypoxemia with improvement in oxygen saturation during this hospital stay. 2. Exacerbation of bronchiectasis. Pseudomonas identified on sputum culture prior to this admission. His quinolone indeterminate. 3. Dementia with behavioral disturbance. 4. New-onset inflammatory arthritis. 5. Acute renal insufficiency. RECOMMENDATIONS: 1. Continue current antibiotics. He has been switched from cefepime to ceftazidime in the event that cefepime may be contributing to current behavioral disturbance. 2. Continue bronchodilators. 3. Check creatinine tomorrow. Would hold Celebrex if his creatinine remains elevated. 4. Continue current benzodiazepines and antipsychotic. 5. Overall prognosis is guarded to poor, but prognosis is worse when patients experience delirium in the hospital setting. End-of-life discussions have been held by Dr. Tran with the patient's . cc: MD Shay Vergara MD
[2018-09-07] MEDS: DUONEB (A & A) INH SCH ×4 (03:00→20:11)
[2018-09-07] MEDS: TAZIDIME 2 GM/NS 2 GM/100 ML IVPB IV SCH ×3 (04:10→18:14)
[2018-09-07 07:20] LABS: BASO# 0.15 X1000 (0.0-0.2); BASO% 1.7 % (0.0-0.8); EOS# 0.14 X1000 (0.0-0.7); EOS% 1.6 % (0.0-10.0); HEMATOCRIT 38.7 % (42.0-52.0); HEMOGLOBIN 11.5 g/dL (14.0-18.0); IMM GRAN# 0.54 X1000 (0.0-0.04); IMM GRAN% 6.1 % (0.0-0.5); LYMPH# 0.98 X1000 (1.2-3.4); LYMPH% 11.1 % (20.5-51.1); MCH 28.2 PG (27-31); MCHC 29.7 g/dL (33-37); MCV 94.9 FL (81-99); MONO# 1.36 X1000 (0.11-0.59); MONO% 15.4 % (1.7-9.3); MPV 9.6 FL (7.4-10.4); NEUT# 5.65 X1000 (1.4-6.5); NEUT% 64.1 % (42.2-75.2); PLT 319 X1000 (130-400); RBC 4.08 XMIL (4.7-6.1); RDW 19.5 % (11.5-14.5); WBC 8.82 X1000 (4.8-10.8)
[2018-09-07 07:30] LABS: ALB/GLOB RATIO 0.8; CALCIUM 9.2 mg/dL (8.8-10.2); CREATININE 1.4 mg/dL (0.7-1.2); MAGNESIUM 2.3 mg/dL (1.5-2.7); POTASSIUM 4.1 mmol/L (3.5-5.1); TOTAL BILIRUBIN 0.18 mg/dL (0.20-1.00); TOTAL PROTEIN 6.8 g/dL (6.3-8.3)
--- NOTE | 2018-09-07 07:33 | Diag Imaging Result Doc PS360 ---
CHEST-PORTABLE - 09/07/2018 INDICATION: abnormal exam COMPARISON: 09/03/2018 FINDINGS: Stable unusual course of the PICC line projects just underneath the aortic arch but appears to end in the SVC. There is worsening right lower lobe infiltrate with complete loss of the right hemidiaphragm. There is slight worsening consolidation and perhaps trace effusion at the left lung base. Stable cardiomegaly. There is pulmonary vascular congestion. IMPRESSION: 1. Worsening bilateral basilar infiltrates and small left pleural effusion. 2. Cardiomegaly. 3. Left PICC line demonstrates an unusual course but the tip appears to be in the SVC. Correlate clinically. Electronically signed by Héctor Whalen 09/07/2018 7:31 AM
--- NOTE | 2018-09-07 08:59 | PROGRESS NOTE ---
DATE: 09/07/2018 SUBJECTIVE: The patient is asleep on his BiPAP machine. At the time of my examination there was no family present. I reviewed the nursing notes and medication list. Apparently, he got his Zyprexa and some Geodon about an hour later last night. I do not see any other medications written for at that time. OBJECTIVE: Vital Signs: Temperature 97.2, pulse 87, respiratory rate 18, blood pressure 141/63, 100% saturated on BiPAP. Lungs: The patient's lungs are remarkably clear while breathing on the BiPAP. Cardiovascular: Regular. Neuropsychiatric: Status cannot be assessed at the present time. Extremities: No peripheral edema. Alberto catheter is draining clear urine. LABORATORY: White cell count 8.8, hematocrit 38.7, BUN 28, creatinine 1.4. Liver function tests are normal. ASSESSMENT AND PLAN: 1. The patient's mental status declined, is requiring a little bit less medication. I wish that the nursing staff would wait more than an hour after his initial dose of Zyprexa before they gave him the Geodon. I do not think that really is adequate time to see with that medication is going to do. 2. The patient's chronic obstructive pulmonary disease with bronchiectasis is stable. He is breathing quite clearly on his BiPAP machine. He is getting aerosol treatments and antibiotics per Dr. Price's orders. 3. The patient's elevated sedimentation rate and arthropathy remains although he has not complained of this in quite some time. 4. The patient continues with Alberto catheter. I will likely add some Flomax and hopefully get the catheter out tomorrow. 5. No reports of supraventricular tachycardia. 6. Abdominal aortic aneurysm. Aware. 7. Prostate cancer. Aware. 8. Do Not Resuscitate level 1. cc: Shay Tran MD
[2018-09-07] MEDS: LOPRESSOR PO PRN (12:23)
[2018-09-07] MEDS: CELEBREX PO SCH (12:30)
[2018-09-07] MEDS: PREDNISONE PO SCH (12:30)
[2018-09-07] MEDS: CARDIZEM CD PO SCH (12:30)
[2018-09-07] MEDS: LASIX PO SCH (12:30)
[2018-09-07] MEDS ORDERED: LANOXIN IV ONE (15:45)
[2018-09-07] MEDS: ZYPREXA ZYDIS PO SCH (18:14)
--- NOTE | 2018-09-07 20:58 | PULMONOLOGY PROGRESS NOTE ---
DATE: 09/07/2018 SUBJECTIVE: The patient is awake and alert. He is conversant. He is confused. He is hallucinating. He has periods of outbursts with anger, but at other times is smiling and appears happy. OBJECTIVE: Vital Signs: The patient has been afebrile for the last 24 hours. Blood pressure 141/63, heart rate 64, respiratory rate 18, oxygen saturation 93% on nasal cannula. HEENT: Pupils are equal and reactive. Oropharynx is clear. Neck: Supple. Chest: Reveals rhonchi bilaterally with decreased breath sounds in the left base. Cardiac: S1, S2. Abdomen: Soft. Extremities: Without change and 1+ edema. LABORATORIES: White blood count 8.82, hemoglobin 11.5, platelet count 319,000. Sodium 143, potassium 4.1, chloride 105, bicarbonate 24, BUN 28, creatinine 1.4. IMPRESSION: An 88-year-old with: 1. Acute hypoxemia. 2. Exacerbation of bronchiectasis. The patient is being treated for Pseudomonas, which was quinolone indeterminate. His sputum production appears to have decreased, and his rhonchi is less audible. 3. Dementia with behavioral disturbance. 4. New-onset inflammatory arthritis. 5. Acute renal insufficiency. RECOMMENDATIONS: 1. Continue current antibiotic regimen. 2. Continue bronchodilators and bronchial hygiene. 3. Continue delirium management per Dr. Tran. 4. Prognosis is guarded with current events. The patient's knows that his prognosis is not good. End of life discussions have been held by Dr. Tran, and if he dies, he will be allowed to have a natural . cc: MD Shay Vergara MD
[2018-09-07] MEDS: FLOMAX PO SCH (21:48)
[2018-09-07] MEDS: GEODON IM PRN (23:01)
[2018-09-08] MEDS: DUONEB (A & A) INH SCH ×4 (04:57→20:06)
[2018-09-08] MEDS: TAZIDIME 2 GM/NS 2 GM/100 ML IVPB IV SCH ×2 (05:35→13:59)
[2018-09-08 08:04] LABS: BASO# 0.07 X1000 (0.0-0.2); BASO% 0.8 % (0.0-0.8); EOS# 0.09 X1000 (0.0-0.7); HEMATOCRIT 37.4 % (42.0-52.0); HEMOGLOBIN 11.1 g/dL (14.0-18.0); IMM GRAN% 4.4 % (0.0-0.5); LYMPH# 0.89 X1000 (1.2-3.4); LYMPH% 9.8 % (20.5-51.1); MCH 28.1 PG (27-31); MCHC 29.7 g/dL (33-37); MCV 94.7 FL (81-99); MONO# 1.21 X1000 (0.11-0.59); MONO% 13.3 % (1.7-9.3); MPV 10.1 FL (7.4-10.4); NEUT# 6.41 X1000 (1.4-6.5); NEUT% 70.7 % (42.2-75.2); PLT 331 X1000 (130-400); RBC 3.95 XMIL (4.7-6.1); RDW 19.3 % (11.5-14.5); WBC 9.07 X1000 (4.8-10.8)
[2018-09-08 08:15] LABS: ALB/GLOB RATIO 0.9; ALBUMIN 3.1 g/dL (3.5-5.0); CREATININE 1.6 mg/dL (0.7-1.2); MAGNESIUM 2.3 mg/dL (1.5-2.7); POTASSIUM 3.8 mmol/L (3.5-5.1); TOTAL BILIRUBIN 0.18 mg/dL (0.20-1.00); TOTAL PROTEIN 6.4 g/dL (6.3-8.3)
[2018-09-08] MEDS: CARDIZEM CD PO SCH (08:58)
[2018-09-08] MEDS: CELEBREX PO SCH (08:58)
[2018-09-08] MEDS: LASIX PO SCH (08:58)
[2018-09-08] MEDS: PREDNISONE PO SCH (08:58)
--- NOTE | 2018-09-08 09:47 | PROGRESS NOTE ---
DATE: 09/08/2018 SUBJECTIVE: The patient has no complaints. He is awake and alert. He does not respond to questions appropriately, although he tries to put on a good face and be funny. He is not oriented to time, place, or person. In speaking with his , she stated that "he did not close his eyes all night". He did get Zyprexa and Geodon last night, to no effect whatsoever. He was not combative except for a few brief times during the night. He still pulled out his various and sundry devices but not as aggressively. VITAL SIGNS: 97.4, 69, 19, 116/53, 100% saturated on nasal cannula. PHYSICAL EXAMINATION: As stated before, the patient is awake and alert. He is not oriented. He is not appropriate. Lungs: Have bilateral coarse breath sounds which clear a little bit with clearing his throat and coughing. He is not wheezing. He is moving air reasonably well. Cardiovascular: Regular. LABORATORY: White cell count is 9.0, hematocrit is 37.4. BUN is 34, creatinine 1.6. This is close to baseline. Blood sugar is normal. ASSESSMENT AND PLAN: 1. The patient's mental status has really not recovered despite having various mechanisms on board for sedation at night. He still remained awake and sometimes combative. I am going to change up his medications and discontinue his Zyprexa, give him a small dose of Klonopin and a large dose of Seroquel at night, and see if that helps. He can always go on the CPAP or BiPAP at night if his respiratory drive is compromised in any way. I think from using the small dose of Klonopin, it is not going to be an issue though. 2. The patient's chronic obstructive pulmonary disease and bronchiectasis are stable. He is oxygenating well. When he is asleep and on the BiPAP, he does incredibly well with this. 3. The patient's elevated sedimentation rate has an incomplete workup. 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 4. I am going to keep the patient on the Alberto catheter. I would like to remove it but he has no idea when he is going to urinate. I have added Flomax so that when we do remove the catheter, hopefully, he will not have that many issues. He had an appointment with Dr. Diane for treatment of prostate cancer but I really do not think that is an issue that is impacting this very much and certainly is not going to be the thing that kills him in the long run. 5. No reports of supraventricular tachycardia. 6. Abdominal aortic aneurysm. Aware. 7. Do Not Resuscitate level 1. 8. I spoke frankly with the that given the fact that all mechanisms are in place for him to have some recovery of his mental status, I do not think he will be able to be handled at home. She was in agreement with this. She would entertain the possibility of hospice but she really needs 24/7 care. I think the only option, given his non-recovery of mental status, is going to be shelter placement with or without hospice. He would need to go to [facility] since they live out in that direction. We will see how he responds to changes in medications tonight. cc: Shay Tran MD
[2018-09-08 09:52] LABS: BANDS 6 % (0-1); LYMPHS 12 % (21-51); MONO 12 % (1-9); SEGS 64 % (42-75)
[2018-09-08 09:53] LABS: HYPOCHROM 1+
[2018-09-08] MEDS: LOPRESSOR PO PRN (12:54)
[2018-09-08] MEDS: SEROQUEL PO SCH ×2 (18:54→20:37)
[2018-09-08] MEDS: KLONOPIN PO SCH ×2 (18:54→20:38)
[2018-09-08] MEDS ORDERED: SEROQUEL PO SCH (19:00)
[2018-09-08] MEDS ORDERED: KLONOPIN PO SCH (19:00)
[2018-09-08] MEDS: FLOMAX PO SCH (20:36)
[2018-09-08] MEDS: GEODON IM PRN (20:39)
--- NOTE | 2018-09-08 22:19 | PULMONOLOGY PROGRESS NOTE ---
DATE: 09/08/2018 SUBJECTIVE: The patient is awake and alert. He continues to have periods of hallucinations. He has a cough, but his reports it is significantly less productive in character. OBJECTIVE: Vital Signs: The patient has been afebrile for the last 24 hours. Blood pressure 108/41, heart rate 83, respiratory rate 18, oxygen saturation 96% on nasal cannula. HEENT: Pupils are equal and reactive. Oropharynx is clear. Neck: Supple. Chest: Reveals crackles at the left base. Cardiac exam: S1, S2. Abdomen: Soft. Extremities: Without edema. LABORATORIES: Cyclic citrullinated peptide is significantly elevated at 87.4. This is consistent with rheumatoid arthritis. White blood count 9.0, hemoglobin 11.1, platelet count 331,000. Sodium 144, potassium 3.8, chloride 104, bicarbonate 29, BUN 34, creatinine 1.6. IMPRESSION: An 88-year-old with: 1. Exacerbation of bronchiectasis. Sputum culture continues to decrease. 2. Acute hypoxemic respiratory failure. 3. Dementia with behavioral disturbance. 4. New onset inflammatory arthritis. Laboratory consistent with rheumatoid arthritis. 5. Renal insufficiency. RECOMMENDATIONS: 1. Continue current antibiotic regimen. 2. Continue current steroid dosing. Would recheck CRP tomorrow. Would consider increasing prednisone if CRP remains elevated despite treatment of bronchiectasis. However, I am aware that this might further exacerbate his behavioral disturbance. 3. Agree with plans for trial of Klonopin and Seroquel as outlined by Dr. Tran. 4. Overall prognosis is guarded to poor given an 88-year-old with problems outlined above. End of life discussions have been held with the patient's by Dr. Tran and he will be allowed to have a natural if he has acute decompensation during this hospitalization. cc: MD Shay Vergara MD
[2018-09-08] MEDS: TYLENOL PO PRN (23:17)
[2018-09-08] MEDS ORDERED: HALDOL IV PRN (23:30)
[2018-09-09] MEDS: TAZIDIME 2 GM/NS 2 GM/100 ML IVPB IV SCH ×3 (01:03→17:44)
[2018-09-09] MEDS: GEODON IM PRN (03:12)
[2018-09-09] MEDS: STERILE WATER INJ. INJ PRN (03:12)
[2018-09-09] MEDS: DUONEB (A & A) INH SCH ×4 (03:40→19:30)
[2018-09-09 07:55] LABS: AGAP 6; ALB/GLOB RATIO 0.9; ALBUMIN 2.9 g/dL (3.5-5.0); ALKALINE PHOSPHATASE 38 U/L (32-122); BUN 38 mg/dL (8-22); C REACTIVE PROT QUANT 11.23 mg/L (0.00-5.00); CALCIUM 8.9 mg/dL (8.8-10.2); CHLORIDE 104 mmol/L (98-107); COSMO 293; CREATININE 1.9 mg/dL (0.7-1.2); ESTIMATED GFR 34; GLUCOSE 110 mg/dL (70-104); GOT 12 U/L (10-34); GPT 10 U/L (10-44); MAGNESIUM 2.3 mg/dL (1.5-2.7); PHOSPHORUS 3.6 mg/dL (2.7-4.5); POTASSIUM 3.8 mmol/L (3.5-5.1); SODIUM 142 mmol/L (136-145); TCO2 32 mmol/L (25-35); TOTAL BILIRUBIN < 0.15 mg/dL (0.20-1.00); TOTAL PROTEIN 6.1 g/dL (6.3-8.3)
--- NOTE | 2018-09-09 08:38 | PROGRESS NOTE ---
DATE: 09/09/2018 SUBJECTIVE: The patient had a horrible night. He was given his Seroquel and clonazepam, and absolutely went wild. He then had Haldol, then had Geodon, and eventually settled down around 2 a.m. or so, and is still asleep at the present time. He would seem that his extreme owning is only made worse by application of appropriate medications. I spoke with the relative who was present there this morning and told her that I was going to stop everything. I do not know that it could be any worse than it was last night since the patient had to be physically restrained. OBJECTIVE: Vital Signs: 98.4, 83, 18, 108/41. Physical Examination: The patient is asleep. He does not wake up to my exam. He is breathing easy. He has good air movement. He is not wheezing or rattling in any way. Extremities show no peripheral edema. Laboratory: White cell count was 9.0 yesterday, hematocrit was 37.4. This morning, his BUN is 38, creatinine 1.9. ASSESSMENT AND PLAN: 1. The patient's mental status has not recovered in the slightest and seems to only be made worse by our application of medications. I am going to hold everything tonight and just see what happens. Maybe this will give us an idea of what direction to go from there. Clearly, in this condition, he cannot go home but, by the same token, I am not sure that a [facility] would accept him without significant sedation which up to this point has failed. 2. The patient's chronic obstructive pulmonary disease and chronic respiratory failure with hypoxemia and bronchiectasis are reasonably well controlled on present dose of medications. He is still on antibiotics. He is intermittently using BiPAP. Dr. Price is following. 3. The patient's arthropathy with elevated sedimentation rate is reasonably well controlled on steroids. His C-reactive protein has dropped from 24.90 to 11.23. One of the sendoff tests for connective tissue disease cascade showed a cyclic citrullinated peptide level which was elevated. This is most consistent with rheumatoid arthritis. 4. Alberto catheter remains in place. Patient is on Flomax. 5. No other reports of supraventricular tachycardia, although I was called yesterday or approximately Saturday night, I can remember which, about a brief period of atrial fibrillation. This seemed to resolve with minimal treatment again. 6. Abdominal aortic aneurysm. Aware. 7. Do Not Resuscitate level 1. cc: Shay Tran MD
[2018-09-09] MEDS: CARDIZEM CD PO SCH (10:26)
[2018-09-09] MEDS: PREDNISONE PO SCH (10:26)
[2018-09-09] MEDS: LOPRESSOR PO PRN (12:27)
[2018-09-09] MEDS: STERILE WATER INJ. ONE ×2 (17:43→17:44)
--- NOTE | 2018-09-09 20:53 | PULMONOLOGY PROGRESS NOTE ---
DATE: 09/09/2018 SUBJECTIVE: The patient continues to have delirium/dementia with behavioral features. He was up most of the evening. He did finally calm down, but now is requiring BiPAP for periods of apnea. OBJECTIVE: The patient has been afebrile for the last 24 hours. Blood pressure 142/52, heart rate 83, respiratory rate 15, oxygen saturation 99% on BiPAP. HEENT: Pupils are equal and reactive. Oropharynx appears clear but dry. Neck is supple. Chest reveals bilateral crackles. Abdomen is soft. Extremities without edema. LABORATORY DATA: Sodium 142, potassium 3.8, chloride 104, bicarbonate 32, BUN 38, creatinine 1.9. IMPRESSION: 1. An 88-year-old with exacerbation of bronchiectasis. 2. Acute hypoxemic respiratory failure. 3. Dementia with behavioral disturbance. 4. New-onset inflammatory arthritis consistent with rheumatoid arthritis. 5. Acute renal failure. RECOMMENDATIONS: 1. Continue current antibiotics. 2. Initiate fluid for hydration. 3. Continue management of behavioral disturbances per Dr. Tran. I agree with plans to place the patient on a drug holiday. 4. Overall prognosis is poor. This was discussed with his . cc: MD Shay Vergara MD
[2018-09-09] MEDS: FLOMAX PO SCH (22:21)
[2018-09-09] MEDS: D5 1/2 NS 1,000 ML IV SCH (22:25)
[2018-09-10] MEDS: TAZIDIME 2 GM/NS 2 GM/100 ML IVPB IV SCH ×3 (00:06→17:31)
[2018-09-10] MEDS: DUONEB (A & A) INH SCH ×4 (03:10→22:16)
[2018-09-10] MEDS: D5 1/2 NS 1,000 ML IV SCH (06:57)
[2018-09-10 08:13] LABS: CALCIUM 8.8 mg/dL (8.8-10.2); CREATININE 1.7 mg/dL (0.7-1.2); POTASSIUM 4.2 mmol/L (3.5-5.1); TOTAL BILIRUBIN 0.15 mg/dL (0.20-1.00); TOTAL PROTEIN 6.1 g/dL (6.3-8.3)
--- NOTE | 2018-09-10 09:34 | PROGRESS NOTE ---
DATE: 09/10/2018 SUBJECTIVE: I spoke at length with the patient's . Up until this morning he had been asleep for the past 25 hours. He was put on BiPAP last night due to apneic spells. When he woke up this morning, he had "about 5 minutes of lucid talk" and then decompensated again. The patient has been restrained all night. He did have a drug holiday and was able to rest. OBJECTIVE: Vital signs: Vital signs 98.1, 70, 24, 118/47, 99% saturated on aerosol face mask. General: The patient has a somewhat rattly coarse respirations, which is really his baseline. He is not actively wheezing and his air movement is fair. Neuropsych the patient is alert. He is oriented to his own name but is not oriented to time, place, or situation. Cardiovascular he is regular. Extremities no peripheral edema. The patient is tied down. He still has a Alberto catheter in which is draining clear yellow urine. LABORATORY: BUN 36, creatinine is 1.7. ASSESSMENT AND PLAN: 1. The patient's mental status has not recovered. He was given a drug holiday yesterday and frankly did not need anything. It seems every sedative and/or antipsychotic that he was given only made the problems worse. I plan to keep him off drug holiday. Because of the patient's mental status and his constant removal of all of the accoutrements that are making him physically improved including his oxygen, Alberto catheter and such, the patient has no his actively trying to pull those out unless restrained. I discussed with the patient's that at this point, he has had no recovery in his mental status with aggressive treatment. I suggested strongly to her that our only course of action was going to be permanent admission to a care home. It is likely that he will be either chemically or physically restrained for the remainder of his life and would likely benefit from [facility] visiting him and being the primary mode of treatment in the care home. 1. The patient chronic obstructive pulmonary disease , chronic respiratory failure is stable. He is not markedly improved despite antibiotics and other treatments. 2. The patient has arthropathy with elevated sedimentation rate consistent with rheumatoid arthritis. He is still on steroids. We can convert this to some other format if necessary. 3. Alberto catheter remains in place. 4. No cause about further dysrhythmia on the monitor. 5. Abdominal aortic aneurysm aware. 6. Do not resuscitate level 1. cc: Shay Tran MD
[2018-09-10] MEDS: CARDIZEM CD PO SCH (11:03)
[2018-09-10] MEDS: PREDNISONE PO SCH (11:03)
[2018-09-10] MEDS ORDERED: D5 1/2 NS 1,000 ML IV SCH (14:15)
[2018-09-10] MEDS ORDERED: LANOXIN IV ONE (15:12)
[2018-09-10] MEDS ORDERED: ATIVAN IV ONE (17:23)
[2018-09-10] MEDS ORDERED: GEODON IM ONE (20:29)
[2018-09-10] MEDS ORDERED: STERILE WATER INJ. INJ ONE (20:29)
[2018-09-10] MEDS ORDERED: THORAZINE IM PRN (20:52)
[2018-09-10] MEDS: FLOMAX PO SCH (20:55)
[2018-09-10] MEDS: TYLENOL PO PRN (20:55)
[2018-09-10] MEDS ORDERED: HALDOL IV ONE (22:00)
--- NOTE | 2018-09-10 22:16 | PULMONOLOGY PROGRESS NOTE ---
DATE: 09/10/2018 SUBJECTIVE: The patient continues to be agitated and pulling at restraints, lines, telemetry leads, and BiPAP mask. Dr. Tran was attempting to extend the drug holiday, but due to agitation, he has required additional sedation. OBJECTIVE: Vital Signs: BP 133/80, heart rate 75, respiratory rate 18, oxygen saturation 98% on BiPAP. HEENT: Pupils are equal and reactive. Oropharynx appears clear. Neck: Supple. Chest: Reveals good air entry bilaterally with no significant rhonchi. He has crackles at the left base. Cardiac exam: S1, S2. Abdomen: Soft. Extremities: Without edema. LABORATORIES: Sodium 143, potassium 4.2, chloride 105, bicarbonate 29, BUN 36, creatinine 1.7. IMPRESSION: 88-year-old with: 1. Exacerbation of bronchiectasis. 2. Acute hypoxemic respiratory failure. 3. Dementia with behavioral disturbance. 4. Acute renal failure. 5. New onset inflammatory arthritis consistent with rheumatoid arthritis. RECOMMENDATIONS: 1. The patient was given additional liter of fluid hydration today. 2. We will discontinue antibiotics. The patient has received a course of antibiotics, and his sputum production has essentially resolved. 3. Continued attempts at management of behavioral disturbances. The patient has tried Ativan, which appears to be a paradoxical effect and has also tried Haldol and Geodon. I think it might be of benefit to try Thorazine, which has a slightly more sedating effect, and I will add this to his regimen in the event he needs additional treatments tonight. 4. Overall prognosis is poor. His is aware that he may not survive and may require hospice. cc: MD Shay Vergara MD
[2018-09-11] MEDS: GEODON IM PRN ×2 (02:31→22:34)
[2018-09-11] MEDS: STERILE WATER INJ. INJ PRN ×2 (02:32→22:34)
[2018-09-11] MEDS: DUONEB (A & A) INH SCH ×4 (04:00→20:17)
[2018-09-11] MEDS ORDERED: LANOXIN IV ONE (08:51)
[2018-09-11] MEDS ORDERED: CARDIZEM IV ONE (08:51)
[2018-09-11] MEDS ORDERED: 1/2 NS 500 ML IV ONE (08:56)
[2018-09-11] MEDS ORDERED: NS 500 ML ONE (09:18)
--- NOTE | 2018-09-11 09:40 | PROGRESS NOTE ---
DATE: 09/11/2018 SUBJECTIVE: I had multiple calls last night about the patient's agitated and somewhat violent aggressive behavior. He had multiple doses of antipsychotic medications as well as benzo's and finally settled down a little after midnight. I had an extremely long conversation with the patient's , and we have decided that his situation is all but non recoverable. We have decided to try and pursue treatments that will keep him comfortable even if he is chemically sedated. OBJECTIVE: Vital Signs: Pulse rate 152 and irregular. He is reportedly in atrial fibrillation. Blood pressure 117/75, and 98% saturated on BiPAP. PHYSICAL EXAMINATION: General: The patient has somewhat coarse breath sounds. He is moving air at or about at baseline. There are crackles in the bases. Extremities: No peripheral edema. The patient is sedated on BiPAP. LABORATORY: BUN 36 and creatinine 1.7. CBC was not drawn today. ASSESSMENT AND PLAN: 1. The patient has not recovered his mental status, and I do not believe that he will at this point. The patient's wants him comfortable. He seems to fight terribly with physical restraint, so we will try to keep him chemically restrained, and he can use BiPAP intermittently. It is difficult to decide how much to use the BiPAP as it likely provides some level of respiratory comfort, but it is not clear how well he will tolerate this or even tolerate oxygen. He does have sleep apnea, and will desaturate with this. 2. The patient has flipped in and out of atrial fibrillation a couple of times. He is now in atrial fibrillation at 150. The patient's did not want him transported to another room, and we were not able to hang any type of drip. I expressed to her that as a comfort measure, we would like to lower his heart rate until we are forced to try just intermittent IV application of medications to try to slow his heart down, and maybe provide a point of conversion for him. 3. Dr. Price has discontinued the patient's antibiotics. He is stable from a pulmonary standpoint. His biggest challenge is due to his mental status and not necessarily to his lungs as he has lived with this for many years. 4. The patient still has an arthropathy with elevated sedimentation rate, consistent with rheumatoid arthritis. We are going to give him IV Solu-Medrol while we him chemically restrained. 5. Continued Alberto catheter. 6. We are going to hold all of his p.o. medications as he is in no condition to take anything p.o. I got a disturbing report from the of a nurse putting capsules in his mouth and water even though he was completely sedated. We will just discontinue those for the present time. 7. Do not resuscitate level 1. 8. As stated earlier, our goals after speaking at length with the family are to keep him reasonably comfortable. We would like to do away with physical restraints and use chemical means just to keep him sedated and relatively comfortable. At some point, the patient will have apneic spells. I do not think his mental status is recoverable. He has been given ample opportunities after prolonged sedation to recover his mental faculties and simply has not. We will support him from a respiratory and cardiac standpoint with the ultimate goal of having his comfort be a priority. 9. The patient's BUN and creatinine are up a bit, and I am going to give him a small bolus of half normal saline. cc: Shay Tran MD
[2018-09-11] MEDS: SOLU-MEDROL IV SCH (10:16)
[2018-09-11] MEDS: CARDIZEM CD PO SCH (10:16)
[2018-09-11] MEDS: THORAZINE 25 MG in NS 25 ML IV SCH ×4 (10:16→21:33)
[2018-09-11] MEDS: LOPRESSOR PO PRN (21:52)
--- NOTE | 2018-09-11 22:34 | PULMONOLOGY PROGRESS NOTE ---
DATE: 09/11/2018 SUBJECTIVE: The patient has received Thorazine. He appears to be resting comfortably. OBJECTIVE: Vital signs: BP 129/53, heart rate 65, respiratory rate 24, oxygen saturation 97% on Venturi mask. HEENT: Pupils are equal and reactive. Oropharynx is clear. Neck: Supple with intermittent obstruction noted. Chest: Reveals good air entry bilaterally without wheezing or rhonchi. Cardiac: S1, S2. Abdomen: Soft. Extremities: Without edema. IMPRESSION: An 88-year-old with 1. Exacerbation of bronchiectasis. 2. Dementia with behavioral disturbance, which has been recalcitrant to Geodon, Seroquel, Haldol, and Ativan. 3. Acute renal failure. 4. Inflammatory arthritis. DISCUSSION: An 88-year-old with problems as outlined above. He has required restraints both chemically and physically due to his condition. I have reviewed Dr. Tran note and agree that his prognosis is extremely poor. This has been stressful both on the patient and his . He is not likely to live half-way. I agree with plans for palliative sedation. RECOMMENDATIONS: 1. Comfort measures as outlined by Dr. Shay Tran. 2. Scheduled sedatives as outlined by Dr. Tran. 3. Allow natural /Do Not Resuscitate level 1. The patient's was not at the bedside upon my visit today but I did speak with family. cc: MD Shay Vergara MD
[2018-09-12] MEDS: THORAZINE 25 MG in NS 25 ML IV SCH ×6 (01:17→20:59)
[2018-09-12] MEDS ORDERED: STERILE WATER INJ. INJ ONE (01:31)
[2018-09-12] MEDS ORDERED: GEODON IM ONE (01:31)
[2018-09-12] MEDS: DUONEB (A & A) INH SCH ×4 (04:32→21:50)
[2018-09-12] MEDS: ATIVAN IV PRN ×2 (08:07→14:00)
[2018-09-12] MEDS: SOLU-MEDROL IV SCH (08:08)
[2018-09-12] MEDS: CARDIZEM CD PO SCH (08:08)
--- NOTE | 2018-09-12 15:25 | PROGRESS NOTE ---
DATE: 09/12/2018 SUBJECTIVE: Mr. Mendoza is resting comfortably this afternoon. He was highly agitated throughout the night. He was constantly thrashing about in bed, pulling at his covers, and continuing with nonsensical speech. He has been getting Thorazine routinely. Family believes that the Ativan has been more effective. He remains in atrial fibrillation. His heart rate has typically been in the 90s. The family has indicated that they want to treat him as conservatively as possible and to keep him as comfortable as possible. A No Code Blue has been established. OBJECTIVE: Temperature 97.6 degrees pulse 94, respiratory rate 20, BP 148/68. Cardiovascular: Irregularly irregular. Lungs: Distant breath sounds with scattered rhonchi. Abdomen: Soft, nontender, with active bowel sounds. ASSESSMENT AND PLAN: 1. Vascular dementia with acute psychosis. I suspect that his worsening psychosis is due to the underlying exacerbation of bronchiectasis. He has been recalcitrant to multiple medications, including Haldol, Geodon, and Seroquel. We will continue Thorazine IV q.4 h., and I will add Ativan 1 mg IV q.3 h. on a scheduled basis. I have discussed the possibility of considering inpatient hospice with the family, and they will consider that option further at this time. They reaffirmed that they wanted to keep him as comfortable as possible and that in the event of a cardiopulmonary arrest, no heroic measures should be undertaken. 2. Atrial fibrillation. He remains in atrial fibrillation. His heart rate is stable. We will continue digoxin and diltiazem. cc: MD Shay Orantes MD
[2018-09-12] MEDS: ATIVAN IV SCH ×3 (16:17→20:59)
[2018-09-13] MEDS: ATIVAN IV SCH ×8 (00:11→21:03)
[2018-09-13] MEDS: THORAZINE 25 MG in NS 25 ML IV SCH ×6 (01:40→21:04)
[2018-09-13] MEDS: DUONEB (A & A) INH SCH ×4 (03:51→21:21)
[2018-09-13] MEDS ORDERED: LASIX IV ONE (09:01)
[2018-09-13] MEDS: SOLU-MEDROL IV SCH (09:15)
--- NOTE | 2018-09-13 09:28 | PROGRESS NOTE ---
DATE: 09/13/2018 SUBJECTIVE: Mr. Mendoza rested comfortably throughout the night. His family reported that there were no episodes of agitation or thrashing about in bed. There was no rambling speech through the night. They were relieved to see the patient sleeping and resting comfortably. We had started him on IV Ativan scheduled every 3 hours. He remains in atrial fibrillation. Heart rate has been stable. Heart rate has been in the 70s and 80s. His O2 saturation dropped to 94% on 5 L. He had wet breath sounds this morning, OBJECTIVE: Vital signs: He is afebrile, pulse 70, respirations 20, blood pressure 140/55. Cardiovascular: Irregularly irregular. Lungs: Crackles in the bases bilaterally. Abdomen: Soft, nontender, with active bowel sounds. ASSESSMENT AND PLAN: 1. Chronic atrial fibrillation. He remains in atrial fibrillation. His heart rate is controlled. We will continue digoxin and diltiazem for rate control. 2. Vascular dementia with acute psychosis. His agitation has improved greatly on around-the- clock Ativan and Thorazine. 3. Acute exacerbation of bronchiectasis. His breath sounds sound wet this morning. I will give him an extra dosage of Lasix today. cc: MD Shay Orantes MD
[2018-09-13] MEDS: CARDIZEM CD PO SCH (09:30)
[2018-09-13] MEDS: LASIX PO SCH (09:30)
[2018-09-13] MEDS ORDERED: CALMOSEPTINE OINTMENT TOP PRN (15:57)
[2018-09-14] MEDS: ATIVAN IV SCH ×7 (00:15→18:24)
[2018-09-14] MEDS: THORAZINE 25 MG in NS 25 ML IV SCH ×5 (02:03→18:23)
[2018-09-14] MEDS: DUONEB (A & A) INH SCH ×4 (06:01→20:41)
[2018-09-14] MEDS: CARDIZEM CD PO SCH (11:10)
[2018-09-14] MEDS: SOLU-MEDROL IV SCH (11:10)
[2018-09-14] MEDS: LASIX PO SCH (11:11)
[2018-09-14] MEDS: CELEBREX PO SCH (11:11)
--- NOTE | 2018-09-14 16:35 | PROGRESS NOTE ---
DATE: 09/14/2018 He has been comfortable. He is not responded to family much at all. His and I think his brother were there at the bedside. Temperature 97.9 degrees, pulse 65, respirations 20, blood pressure 104/64. Pupils are equal and round. Lungs are clear anterolateral. cardiovascular. Regular rhythm, rate without murmur or S3. Abdomen soft. Skin is warm and dry. ASSESSMENT AND PLAN: 1. Chronic atrial fibrillation remains in atrial fibrillation heart rate. We are going to leave alone. Family would like to just pursue comfort measures. He is not able to swallow and wake up. 2. Vascular dementia, acute psychosis, agitation is better. He is on Ativan and Thorazine. 3. Exacerbation of bronchiectasis aware. Family would like to continue pursue comfort measures. I reviewed his medication and his lab. I do not see any change at this point. cc: MD Shay Gomez MD
[2018-09-14 19:47] VITALS: BP 150/58
[2018-09-14] MEDS: FLOMAX PO SCH (20:08)
--- NOTE | 2018-09-15 10:44 | EKG Report ---
Test Performed on : 09/13/2018 06:04:22 AM Test Reason : 3N. No order in [place] Blood Pressure : / mmHG Vent. Rate : 097 BPM Atrial Rate : 097 BPM P-R Int : 130 ms QRS Dur : 112 ms QT Int : 352 ms P-R-T Axes : 059 035 048 degrees QTc Int : 447 ms Sinus rhythm. with occasional premature ventricular complexes. Incomplete right bundle branch block ST & T wave abnormality, consider anterior ischemia Abnormal ECG When compared with ECG of 03-SEP-2018 17:47, Previous ECG has undetermined rhythm, needs review Criteria for Inferior infarct are no longer present ST no longer depressed in Anterior leads Confirmed by Nona LEMUS, Jermaine ([id number]) on 09/16/2018 8:34:21 AM
--- NOTE | 2018-09-16 07:11 | DISCHARGE SUMMARY ---
ADMISSION DATE: 09/03/2018 DISCHARGE DATE: 09/14/2018 DIAGNOSES: 1. Dementia with acute delirium. 2. Sundowner syndrome. 3. Severe agitation. 4. Chronic obstructive pulmonary disease. 5. Chronic respiratory failure with hypoxemia. 6. Bronchiectasis. 7. Hypertension. HOSPITAL COURSE: This 88-year-old white male was brought to the emergency room after several days of not sleeping and worsening severe agitation. The patient was admitted to the hospital after having been put on some IV antibiotics by Dr. Price. The onset of the patient's dementia and confusion had been ongoing for months to years, but he generally been very calm and complacent. After starting the antibiotics, he seemed to be very agitated and angry. His initial workup included a CT scan and lab work, all of which were normal. The patient was admitted to the floor and given multiple sedative medications and eventually he achieved some degree of calmness and sleep. It would seem that relatively normal doses of either antipsychotic agents or benzodiazepines or both would only set the patient off for worse. Eventually after several hours of fighting he would calm down and sleep at least for a bit. The same pattern continued throughout his hospitalization. Dr. Price was consulted and changed antibiotics and finished his antibiotic course for his bronchiectasis flare. The patient had no other significant respiratory difficulty during his hospitalization, although when heavily sedated he would require BiPAP, which seemed to give him some degree of rest from his work of breathing. He was never in any respiratory distress during this hospitalization. Dr. Dunn was consulted and felt that his delirium and dementia were multifactorial. We eventually switched to combinations of sedatives which seem to be effective. I had multiple long conversation with the patient's . Because of his level of agitation, which included pulling off all of his oxygen, not cooperating, trying to get out of bed and walk around, seen to be kicking nurses and such made it impossible for him to return home even with hospice. It was unclear whether he would even be allowed in a [facility]cc as violent and agitated as he was. We were pursuing permanent mcc placement before his . At the time of the patient's admission, he was made a do not resuscitate level 1. Eventually towards the last few days of his life we had settled on a scheduled dose of Thorazine, along with lorazepam as needed and be put on BiPAP when he was sufficiently sedated. The family decided that they did not want to necessarily put him on BiPAP and they agreed with the do not resuscitate. Over the course of the last day of his life, he had multiple apneic spells and eventually passed at about 8:37 p.m. on the . No resuscitative efforts were made as per the family's wishes. cc: Shay Tran MD
== END 2018-09-14 20:37 | disposition expired | DRG 884 ==
LOC: SUPCPDRO → ED 10:16 → 3N 15:00
PROVIDERS: ADMIT Internal Medicine; ATTEND Internal Medicine
CPT/HCPCS: 70450; 71010; 71045; 80053; 80101; 80301; 80307; 80324; 80345; 80346; 80353; 80358; 80361; 80365; 81001; 82607; 82805; 82948; 83605; 83735; 83992; 84100; 84439; 84443; 85025; 85651; 86038; 86140; 86200; 93005; 93010; 94003; 94640; 94660; 94760; 94761; 95816; 99285; A9270; G0431; G0434; G0479; G0480; J0713; J1160; J1630; J1940; J2060; J2920; J3230; J3486; J7030; J7040; J7506; J7512; XXXXX